=== PATIENT | female | born 1995 | race Caucasian/White ===

== ENCOUNTER 2024-05-09 12:18 | Emergency (ER) | payer BC ==
[~2024-05-09] VITALS: Ht 157.5 cm; Wt 93.9 kg
[2024-05-09 13:45] VITALS: BP 108/66; TEMP 98.3; O2SAT 100
[2024-05-09] MEDS ORDERED: POLY119P PO (14:03)
== END 2024-05-09 14:17 | disposition home or self-care (01) ==
LOC: ER 13:46
DX: K59.00 Constipation, unspecified (principal); R10.9 Unspecified abdominal pain; Z88.0 Allergy status to penicillin; Z88.2 Allergy status to sulfonamides; Z88.1 Allergy status to other antibiotic agents